=== PATIENT | female | born 1970 | race African-American/Black ===

== ENCOUNTER 2016-05-07 05:03 | Day surgery (SDC) | payer OTHER ==
[2016-05-06 12:34] VITALS: BMI 26.9
[2016-05-07] MEDS ORDERED: BUPIVACAINE HCL/PF 0.5% (5MG/ML) 10 ML VIAL ONE (07:52)
--- NOTE | 2016-05-07 09:17 | HP ---
History & Physical Update - History History: No Change - Physical Physical: No Change - Assessment Assessment: No Change - Plan Plan: No Change (This is my first time meeting the patient. I introduced myself and informed the patient that I will be assisiting Dr. Carey for the procedure. Patient is fine with that.)
[2016-05-07] MEDS ORDERED: oxyCODONE HCL 5 MG TABLET PO PRN (09:20)
[2016-05-07] MEDS ORDERED: KETOROLAC TROMETHAMINE 30 MG/1 ML VIAL ONE (09:20)
[2016-05-07] MEDS ORDERED: ROCURONIUM BROMIDE 50 MG/5 ML VIAL ONE (09:20)
[2016-05-07] MEDS ORDERED: DEXAMETHASONE SOD PHOSPHATE 4 MG/1 ML VIAL ONE (09:20)
[2016-05-07] MEDS ORDERED: ceFAZolin SODIUM 1 GM VIAL ONE (09:20)
[2016-05-07] MEDS ORDERED: SODIUM CHLORIDE 0.9% P/F 10 ML VIAL IJ ONE (09:20)
[2016-05-07] MEDS ORDERED: MIDAZOLAM HCL 2 MG/2 ML SINGLE DOSE VIAL ONE (09:20)
[2016-05-07] MEDS ORDERED: ONDANSETRON 4 MG/2 ML VIAL IVPUSH PRN (09:20)
[2016-05-07] MEDS ORDERED: LACTATED RINGERS SOLUTION 1,000 ML IV SCH (09:30)
[2016-05-07] MEDS ORDERED: ceFAZolin SODIUM 1 GM VIAL IVPB ONE (09:34)
[2016-05-07] MEDS ORDERED: BUPIVACAINE HCL/PF 0.5% (5MG/ML) 10 ML VIAL IJ ONE (09:58)
[2016-05-07] MEDS ORDERED: NEOSTIGMINE METHYLSULFATE 0.5 MG/ML - 10 ML MDV ONE (11:40)
[2016-05-07] MEDS ORDERED: GLYCOPYRROLATE 0.2 MG/1 ML VIAL ONE (11:40)
[2016-05-07 12:46] VITALS: TEMP 97.6
--- NOTE | 2016-05-07 14:02 | OP ---
Operative Note - Note: Operative Date: 05/07/16 Pre-Operative Diagnosis: RIH AND UMBILICAL HERNIA, FOREIGN BODY (GLASS) SUBUNGUAL RIGHT 4TH DIGIT Operation: ROBOTIC RIH REPAIR WITH MESH, OPEN UMBILICAL HERNIA REPAIR WITH MESH , REMOVAL OF FB RIGHT 4TY DIGIT Findings: RIH, 2 CM UMIBILICAL HERNIA, FB (BROKEN GLASS) RIGHT 4TH DIGIT Post-Operative Diagnosis: Same as Pre-op Surgeon: Rashi Carey Automation Software Engineer: Elliot Benitez Anesthesia: General Specimens Removed: HERNIA SAC, FB (GLASS) Estimated Blood Loss (mls): 5 Operative Report Dictated: Yes
[2016-05-07 18:04] VITALS: BP 112/67; PULSE 82
--- NOTE | 2016-05-08 13:31 | PATH ---
Surgical Pathology Report Patient Name: TENZIN RUIZ [facility]. Rec. #: [id number] /Age/Gender: 1970 (Age: 45) / F Account: [id number] Location: [facility] SURGICAL Taken: 05/07/2016 Received: 05/07/2016 Reported: 05/08/2016 Physicians: Rashi Carey M.D. Specimen(s) Received PERITONEAL SAC Clinical History Right inguinal and umbilical hernia Final Diagnosis PERITONEAL SAC, RIGHT INGUINAL AND UMBILICAL HERNIAS REPAIR: FOCALLY MESOTHELIUM LINED BENIGN FIBROMEMBRANOUS TISSUE. Electronically Signed Maverick Daugherty M.D. Gross Description Received in formalin, labeled "peritoneal sac" is a 2.4 x 1.2 x 0.3 cm douglas-pink, irregular portion of fibromembranous tissue. The specimen is trisected and entirely submitted in one cassette. /05/07/201605/07/2016
--- NOTE | 2016-05-08 15:58 | OP ---
DATE OF OPERATION: 05/07/2016 PROCEDURE: 1. Robotic-assisted laparoscopic right inguinal hernia repair with mesh. 2. Open umbilical hernia repair with mesh. 3. Removal of foreign body from the subungual region of the right fourth finger. PREOPERATIVE DIAGNOSIS: 1. Right inguinal hernia. 2. Umbilical hernia. 3. Foreign body, right fourth finger. POSTOPERATIVE DIAGNOSIS: 1. Right inguinal hernia. 2. Umbilical hernia. 3. Foreign body, right fourth finger. SURGEON: Rashi Carey MD ANESTHESIA: General endotracheal EC TEACHER: HEIDE Joseph ESTIMATED BLOOD LOSS: Approximately 3 mL. WOUND CLASS: Clean. FINDINGS: This is a 45-year-old female who presents with a painful right inguinal bulge as well as an umbilical bulge. PHYSICAL EXAM: On physical exam, the patient has a reducible right inguinal hernia as well as an umbilical hernia with about a 2-cm defect. The patient was advised to have repair of the hernia. Consent was obtained after discussing the risks, benefits and alternatives of the procedure. The night before the procedure, the patient accidentally broke a glass, hitting the subungual region of the right fourth finger with incomplete removal of a broken piece of glass. So, the patient was also consented for possible removal of a foreign body. PROCEDURE: The patient received a gram of Ancef prior to the start of this procedure. She was then brought to the operating room and placed in the supine position. General endotracheal anesthesia was administered. The abdomen was prepped and draped in the usual sterile fashion. Using 0.5% Marcaine, local anesthesia was administered to the post-incision site. The peritoneal cavity was entered using the Veress needle technique via a superior periumbilical incision. Pneumoperitoneum was established. An 8-mm port was inserted at the umbilical incision followed by insertion of the 30-degree 3-D laparoscope. The patient was then placed in steep Trendelenburg position. Two 8-mm ports were inserted on each side of the umbilicus 7 mm away. The target organ was set and the robotic arms were docked. EndoWrist aga were inserted through the right-sided port and connected to monopolar cautery. The fenestrated bipolar forceps were inserted through the left-sided port. The undersigned scrubbed up and commenced the consult part of the procedure. At this point, adhesions of the anterior wall of the uterus to the posterior abdominal wall were noted, and an indirect hernia containing the round ligament was noted. The uterine adhesion was partially taken down to provide a better view of the inguinal region. Afterwards, the parietal peritoneum about 6 cm away from the inguinal canal was opened using the EndoWrist aga. Dissection was done using the EndoWrist aga and fenestrated bipolar to create the preperitoneal space. The inferior epigastric artery was used as a landmark. The dissection was carried out under the inferior epigastric vessels. This dissection was carried out laterally toward the anterior-superior iliac spine, medially toward the symphysis pubis, inferiorly toward the bladder and down toward the peritoneal reflection. The hernia sac was then carefully isolated and taken down and the round ligament was transected at its very distal end. After reduction of the hernia, an adequate preperitoneal space was created and a 15- x 10-cm ProGrip mesh was deployed covering the entire inguinal canal with at least 5 cm of overlap from the indirect hernia. After the deployment was deemed satisfactory, the peritoneal opening was closed with several running 2-0 absorbable V-Loc sutures. The instruments were removed and the robotic arms were undocked. The pneumoperitoneum was evacuated and the ports were removed. The umbilical incision was lengthened to gain entry into the umbilical hernia. The hernia sac was amputated, and a small size Ventralex ST mesh was deployed and anchored to each side of the fascia with 2-0 Prolene suture. The opening was also opposed with one [id number] 2-0 Prolene suture. The wounds were then closed with subcuticular 4-0 Biosyn sutures reinforced with Dermabond. Next, the right fourth finger was painted with Betadine and the subungual region was carefully explored using mosquito forceps. A tiny, 1-mm piece of broken glass was removed. The fourth finger was then covered with a Band-Aid. The patient was successfully extubated and transferred to the Post-Anesthesia Care Unit in satisfactory condition. El [id number] MTDD
== END 2016-05-07 18:08 | disposition home or self-care (01) ==
LOC: JASU-SURG 05:03
PROVIDERS: ATTEND Surgery
PROC: 8E0W4CZ Robotic Assisted Procedure of Trunk Region, Percutaneous Endoscopic Approach (ICD-10-PCS; 2016-05-07)
PROC: 0WUF0JZ Supplement Abdominal Wall with Synthetic Substitute, Open Approach (ICD-10-PCS; 2016-05-07)
PROC: 0JCJ3ZZ Extirpation of Matter from Right Hand Subcutaneous Tissue and Fascia, Percutaneous Approach (ICD-10-PCS; 2016-05-07)
PROC: 0YU54JZ Supplement Right Inguinal Region with Synthetic Substitute, Percutaneous Endoscopic Approach (ICD-10-PCS; principal; 2016-05-07 09:00)
DX: K40.90 Unilateral inguinal hernia, without obstruction or gangrene, not specified as recurrent (principal); K42.9 Umbilical hernia without obstruction or gangrene; M79.5 Residual foreign body in soft tissue
CPT/HCPCS: 49585; 49650; S2900; 88302-TC; 94760

== ENCOUNTER → 2019-05-03 | Day surgery (SDC) | payer OTHER ==
--- NOTE | 2019-05-04 16:00 | PATH ---
Surgical Pathology Report Patient Name: TENZIN RUIZ [facility]. Rec. #: [id number] /Age/Gender: 1970 (Age: 48) / F Account: [id number] Location: [facility] Taken: 05/03/2019 Received: 05/03/2019 Reported: 05/04/2019 Physicians: El Garcia M.D. Specimen(s) Received RIGHT BREAST CORE BIOPSY Clinical History Palpable mass Mammographic findings, ultrasound findings: Highly suspicious/malignant 1.5 cm mass Final Diagnosis BREAST, RIGHT, 11:00, ULTRASOUND GUIDED CORE BIOPSY: INVASIVE DUCTAL CARCINOMA, MODERATELY DIFFERENTIATED, MEASURING AT LEAST 1.2 CM IN THIS MATERIAL. Results of Estrogen Receptor (ER) and Progesterone Receptor (WY) studies performed at [facility] are as follows: ER (clone [id number] mouse monoclonal antibody by [employer]): >95% nuclear staining with strong intensity (Positive). WY (clone16 mouse monoclonal antibody by [employer]): ~50% nuclear staining with moderate to strong intensity (Positive). Results of Her2 (IHC) & Ki-67 studies pending and will be reported separately. Findings discussed with Dr. Torres, 05/04/19. Positive and negative controls (internal if applicable) show appropriate results. Formalin fixation and cold ischemic times are within current ASCO/CAP recommendations for ER, WY and Her2 testing. Electronically Signed Gi De La Torre M.D. Addendum Reported: 05/05/2019 Addendum Diagnosis Results of Her2 (IHC) & Ki-67 studies performed at [place], [place] ([id number]) are as follows: Her2 IHC (EP3 from [employer], formerly known as [id number], using [employer] Polymer Refine detection kit): 1+ (Negative). Ki-67: ~20% (Intermediate proliferative index). Case discussed with Dr. Carey, 05/05/19. Positive and negative controls (internal if applicable) show appropriate results. Gi De La Torre M.D. Gross Description Received in formalin labeled "right 11:00," are 4 douglas-yellow, cylindrical portions of fibroadipose tissue ranging from 0.2-1.3 cm in length and averaging 0.1 cm in diameter. The specimens are submitted in toto in one cassette. Time to formalin fixation: Less than one minute Total formalin fixation time: Approximately 8 hours. 05/03/2019 [facility]05/03/2019
== END | disposition home or self-care (01) ==
LOC: JRADUS-SUR 08:50 → JMAMMO-SUR 08:50
PROVIDERS: ATTEND Surgery
PROC: 0HBT3ZX Excision of Right Breast, Percutaneous Approach, Diagnostic (ICD-10-PCS; principal; 2019-05-03)
DX: C50.411 Malignant neoplasm of upper-outer quadrant of right female breast (principal); Z17.0 Estrogen receptor positive status [ER+]
CPT/HCPCS: 19083; 77065-TC; 87899; 88305-TC; 88342-TC; A4648